=== PATIENT | female | born 1970 | race Caucasian/White ===

== ENCOUNTER 2022-11-16 17:26 | Emergency (ER) | payer BC ==
[2022-11-16 17:38] VITALS: BP 124/79; PULSE 97; RESP 18; TEMP 98; BMI 30.4
[2022-11-16] MEDS ORDERED: IBUPROFEN 600 MG TABLET (FP) PO ONE (18:53)
[2022-11-16] MEDS ORDERED: IBUPROFEN 400 MG TABLET (FP) PO ONE (18:59)
[2022-11-16 21:14] LABS: BASO % 0.5 % (0-2.0); EOS % 2.4 % (0-4.5); HEMATOCRIT 29.2 % (32.4-45.2); HEMOGLOBIN 9.4 GM/dL (10.7-15.3); LYMPH % 18.5 % (8-40); MCH 27.7 pg (25.7-33.7); MCHC 32.1 g/dl (32.0-36.0); MEAN CELL VOLUME 86.2 fl (80-96); MEAN PLT VOLUME 7.4 fl (7.5-11.1); MONO % 9.5 % (3.8-10.2); NEUT % 69.1 % (42.8-82.8); PLATELET COUNT 324 10^3/uL (134-434); RBC 3.38 M/mm3 (3.60-5.2); RDW 15.2 % (11.6-15.6); WHITE BLOOD COUNT 8.7 K/mm3 (4.0-10.0)
[2022-11-16 21:23] LABS: URINE APPEARANCE CLEAR; URINE BILIRUBIN NEGATIVE (NEGATIVE); URINE COLOR YELLOW; URINE GLUCOSE (UA) NEGATIVE (NEGATIVE); URINE KETONE NEGATIVE (NEGATIVE); URINE LEUK ESTERASE NEGATIVE (NEGATIVE); URINE NITRITE NEGATIVE (NEGATIVE); URINE PROTEIN NEGATIVE (NEGATIVE)
[2022-11-16 21:59] LABS: BLOOD UREA NITROGEN 19.3 mg/dL (7-18); CALCIUM 8.9 mg/dL (8.5-10.1)
[2022-11-16 22:00] LABS: ALBUMIN 3.3 g/dl (3.4-5.0)
[2022-11-16 22:03] LABS: CREATININE 0.9 mg/dL (0.55-1.3)
[2022-11-16 22:04] LABS: BILIRUBIN,TOTAL 0.5 mg/dL (0.2-1); TOT PROT 6.8 g/dl (6.4-8.2)
== END 2022-11-16 22:26 | disposition home or self-care (01) ==
LOC: JER 17:26
DX: M79.604 Pain in right leg (principal)
CPT/HCPCS: 36415; 80053; 81003; 82550; 85025; 87086; 93971-TC; 99284-25